=== PATIENT | male | born 1970 | race African-American/Black ===

== ENCOUNTER 2019-07-23 11:40 | Inpatient (IN) | payer MEDICARE, MEDICAID ==
[~2019-07-23] VITALS: Ht 177.8 cm; Wt 97.8 kg
[2019-07-23] MEDS ORDERED: MORPHINE SULFATE 4 MG/ML CPJ (NOT FOR IM USE) IV STA (12:01)
[2019-07-23] MEDS ORDERED: ONDANSETRON HCL 4MG/2ML INJ IV STA (12:01)
[2019-07-23 13:03] LABS: BASOPHILS % 0.3 % (0.0-2.0); EOSINOPHILS % 0.8 % (0.0-5.0); HEMATOCRIT. 51.2 % (42.0-52.0); HEMOGLOBIN. 18.3 g/dL (14.0-18.0); LYMPHOCYTES % 18.4 % (20.0-50.0); MEAN CORPUSCULAR VOLUME 87.1 fL (80.0-94.0); MONOCYTES % 13.9 % (2.0-8.0); NEUTROPHILS % 66.6 % (40.0-76.0); PLATELET 188 x1000/uL (130-400); RED BLOOD CELL COUNT 5.88 mill/uL (4.7-6.1); RED CELL DISTRIBUTION WIDTH 15.2 % (11.6-14.6)
[2019-07-23 13:12] LABS: CHLORIDE 98 mEq/L (98-107)
[2019-07-23 13:13] LABS: INR 1.1; PARTIAL THROMBOPLASTIN TIME 27.1 sec (23.4-31.0); PROTHROMBIN TIME 11.4 sec (9.6-11.0)
[2019-07-23 13:15] LABS: ETHANOL BLOOD < 10 mg/dL
[2019-07-23] MEDS ORDERED: KCL 20MEQ/100ML PREMIX 100 ML IV ONE (13:30)
[2019-07-23] MEDS ORDERED: ONDANSETRON HCL 4MG/2ML INJ IV ONE (13:45)
[2019-07-23] MEDS ORDERED: MORPHINE SULFATE 4 MG/ML CPJ (NOT FOR IM USE) IV ONE (13:45)
[2019-07-23] MEDS ORDERED: POTASSIUM CHLORIDE INJ 40 MEQ in DEXT 5% WATER 250 ML IV ONE (17:00)
[2019-07-23] MEDS ORDERED: CLONIDINE 0.1MG TABLET PO PRN (20:15)
[2019-07-23] MEDS ORDERED: DOCUSATE SODIUM 100MG CAPSULE PO PRN (20:15)
[2019-07-23] MEDS ORDERED: HYDROCODONE/ACETAMINOPHEN 5/325MG TABLET PO PRN (20:15)
[2019-07-23] MEDS ORDERED: NA PHOS,M-B/NA PHOS,DI-BA ENEMA 118ML PR PRN (20:15)
[2019-07-23] MEDS ORDERED: MAGNESIUM/ALUMINUM HYDROXIDE/SIMETHICONE 30ML UDC PO PRN (20:15)
[2019-07-23] MEDS ORDERED: DIPHENHYDRAMINE 50MG/ML VIAL IV PRN (20:15)
[2019-07-23] MEDS ORDERED: MORPHINE SULFATE 2 MG/ML CPJ (NOT FOR IM USE) IV PRN (20:15)
[2019-07-23] MEDS ORDERED: GUAIFENESIN 200MG/10ML SUGAR FREE UDC PO PRN (20:15)
[2019-07-23] MEDS ORDERED: ONDANSETRON HCL 4MG/2ML INJ IV PRN (20:15)
[2019-07-23] MEDS ORDERED: ACETAMINOPHEN 325MG TABLET PO PRN (20:15)
[2019-07-23] MEDS ORDERED: IPRATROPIUM/ALBUTEROL 0.5-3(2.5)MG/3ML NEB NEB PRN (20:15)
[2019-07-23] MEDS ORDERED: LORAZEPAM 2MG/ML CPJ IV PRN (20:15)
[2019-07-23 21:31] VITALS: BP 140/90
[2019-07-23 21:43] VITALS: BP 140/90
[2019-07-23] MEDS ORDERED: DEXTROSE 50% WATER 50ML SYRINGE IV PRN (22:15)
[2019-07-23] MEDS: SODIUM CHLORIDE 0.45% 1,000 ML IV SCH (22:24)
[2019-07-23] MEDS: ENOXAPARIN 30MG/0.3ML SYR SUBCUT SCH (22:24)
[2019-07-24 00:05] VITALS: BP 136/86
[2019-07-24 04:00] VITALS: BP 132/87
[2019-07-24 06:12] LABS: HEMATOCRIT. 45.5 % (42.0-52.0); HEMOGLOBIN. 15.9 g/dL (14.0-18.0); MEAN CORPUSCULAR HEMOGLOBIN 30.5 pg (28.0-32.0); MEAN CORPUSCULAR VOLUME 87.1 fL (80.0-94.0); MEAN PLATELET VOLUME 11.3 fl (7.4-10.4); PLATELET 163 x1000/uL (130-400); RED BLOOD CELL COUNT 5.22 mill/uL (4.7-6.1); RED CELL DISTRIBUTION WIDTH 15.7 % (11.6-14.6)
[2019-07-24] MEDS: BLOOD SUGAR DIAGNOSTIC STRIP TEST SCH ×4 (06:19→21:00)
[2019-07-24 06:25] LABS: CHLORIDE 105 mEq/L (98-107)
[2019-07-24 06:42] LABS: LDL CHOLESTEROL 86 mg/dL (5-100)
[2019-07-24 06:44] LABS: HDL CHOLESTEROL 44 mg/dL (40-59); T4 FREE 1.57 ng/dL (0.76-1.46)
[2019-07-24 08:00] VITALS: BP 123/79
[2019-07-24] MEDS: INSULIN LISPRO 100 UNITS/ML SUBCUT SCH ×4 (08:10→21:00)
[2019-07-24] MEDS: ENOXAPARIN 30MG/0.3ML SYR SUBCUT SCH ×2 (09:29→20:57)
[2019-07-24] MEDS ORDERED: POTASSIUM CHLORIDE INJ 40 MEQ in DEXT 5% WATER 250 ML IV NR (09:30)
[2019-07-24 12:00] VITALS: BP 122/50
[2019-07-24 13:40] LABS: PLATELET ESTIMATE NORMAL
[2019-07-24 16:00] VITALS: BP 135/96
[2019-07-24] MEDS: SODIUM CHLORIDE 0.45% 1,000 ML IV SCH ×2 (17:10→20:57)
[2019-07-24 20:00] VITALS: BP 126/80
[2019-07-25 00:05] VITALS: BP 131/85
[2019-07-25 04:00] VITALS: BP 136/91
[2019-07-25] MEDS: BLOOD SUGAR DIAGNOSTIC STRIP TEST SCH ×4 (05:57→21:00)
[2019-07-25] MEDS: INSULIN LISPRO 100 UNITS/ML SUBCUT SCH ×4 (07:42→21:00)
[2019-07-25 08:00] VITALS: BP 112/71
[2019-07-25] MEDS: ENOXAPARIN 30MG/0.3ML SYR SUBCUT SCH ×2 (08:24→22:11)
[2019-07-25] MEDS ORDERED: POTASSIUM CHLORIDE INJ 40 MEQ in DEXT 5% WATER 250 ML IV NR ×2 (08:30→19:30)
[2019-07-25 11:18] LABS: CHLORIDE 104 mEq/L (98-107)
[2019-07-25 11:29] LABS: BASOPHILS % 0.4 % (0.0-2.0); EOSINOPHILS % 2.4 % (0.0-5.0); HEMOGLOBIN. 13.8 g/dL (14.0-18.0); LYMPHOCYTES % 21.1 % (20.0-50.0); MEAN CORPUSCULAR HEMOGLOBIN 30.5 pg (28.0-32.0); MEAN CORPUSCULAR VOLUME 86.6 fL (80.0-94.0); MEAN PLATELET VOLUME 10.7 fl (7.4-10.4); MONOCYTES % 11.7 % (2.0-8.0); NEUTROPHILS % 64.4 % (40.0-76.0); PLATELET 141 x1000/uL (130-400); RED BLOOD CELL COUNT 4.51 mill/uL (4.7-6.1); RED CELL DISTRIBUTION WIDTH 15.5 % (11.6-14.6)
[2019-07-25] MEDS ORDERED: POTASSIUM CHLORIDE INJ 40 MEQ in DEXT 5% WATER 250 ML IV ONE (13:00)
[2019-07-25 13:11] VITALS: BP 134/77
[2019-07-25] MEDS ORDERED: POTASSIUM CHLORIDE INJ 60 MEQ in DEXT 5% WATER 500 ML IV NR (13:30)
[2019-07-25 16:44] VITALS: BP 133/92
[2019-07-25 18:21] LABS: HEPATITIS B SURFACE ANTIGEN NEGATIVE
[2019-07-25 18:51] LABS: HEPATITIS A AB IGM NEGATIVE (NEGATIVE)
[2019-07-25 19:45] LABS: CLARITY URINE TURBID (CLEAR); COLOR URINE YELLOW (YELLOW); KETONES URINE NEGATIVE (NEGATIVE); LEUKOCYTE ESTERASE URINE 3+ (NEGATIVE); NITRITE URINE POSITIVE (NEGATIVE); OCCULT BLOOD URINE TRACE (NEGATIVE); PH URINE 6.5 (4.5-8.0); PROTEIN URINE TRACE (NEGATIVE); SPECIFIC GRAVITY URINE 1.006 (1.005-1.030)
[2019-07-25 20:19] VITALS: BP 119/75
[2019-07-26] VITALS (9 sets, daily range): BP systolic 121–158; BP diastolic 58–84
[2019-07-26] MEDS ORDERED: POTASSIUM CHLORIDE INJ 40 MEQ in DEXT 5% WATER 250 ML IV NR (01:00)
[2019-07-26 06:32] LABS: BASOPHILS % 0.2 % (0.0-2.0); HEMATOCRIT. 44.3 % (42.0-52.0); HEMOGLOBIN. 15.7 g/dL (14.0-18.0); LYMPHOCYTES % 18.8 % (20.0-50.0); MEAN CORPUSCULAR HEMOGLOBIN 30.8 pg (28.0-32.0); MEAN CORPUSCULAR VOLUME 86.9 fL (80.0-94.0); MEAN PLATELET VOLUME 11.2 fl (7.4-10.4); MONOCYTES % 9.1 % (2.0-8.0); NEUTROPHILS % 69.9 % (40.0-76.0); PLATELET 161 x1000/uL (130-400); RED BLOOD CELL COUNT 5.09 mill/uL (4.7-6.1); RED CELL DISTRIBUTION WIDTH 15.2 % (11.6-14.6)
[2019-07-26 06:39] LABS: CHLORIDE 105 mEq/L (98-107)
[2019-07-26] MEDS: BLOOD SUGAR DIAGNOSTIC STRIP TEST SCH ×4 (07:40→20:48)
[2019-07-26] MEDS: ENOXAPARIN 30MG/0.3ML SYR SUBCUT SCH ×2 (10:52→20:39)
[2019-07-26 11:07] LABS: BG BASE EXCESS 6.7 mmol/L (-2.0-2.0); BG CARBOXYHEMOGLOBIN 0.7 % (0.5-1.5); BG FRACTION INSPIRED OXYGEN 21; BG HCO3 ACT 30.3 mmol/L (22.0-26.0); BG METHEMOGLOBIN 0.3 % (0.0-1.5); BG OXYGEN SATURATION 92.9 % (92.0-98.5); BG PCO2 39.5 mmHg (35.0-45.0); BG PH 7.502 (7.350-7.450); BG PO2 62.5 mmHg (75.0-100.0); BG SAMPLE SITE RIGHT BRACHIAL; BG TOTAL HEMOGLOBIN 13.6 g/dL (12.0-18.0); BG VENT MODE ROOM AIR
[2019-07-26] MEDS: INSULIN LISPRO 100 UNITS/ML SUBCUT SCH ×3 (13:00→20:48)
[2019-07-26] MEDS ORDERED: HYDRALAZINE 20MG/ML VIAL IV PRN (14:15)
[2019-07-26] MEDS: POTASSIUM CHLORIDE INJ 40 MEQ in DEXTROSE 5% WATER 1,000 ML IV SCH (14:28)
[2019-07-26] MEDS: LEVOFLOXACIN 500MG PREMIX 100 ML IV SCH (16:56)
[2019-07-26 18:10] LABS: CHLORIDE 109 mEq/L (98-107)
[2019-07-26] MEDS: METRONIDAZOLE 500 MG PREMIX 100 ML IV SCH (18:36)
[2019-07-26] MEDS ORDERED: POTASSIUM CHLORIDE INJ 40 MEQ in DEXT 5% WATER 250 ML IV SCH (21:00)
[2019-07-27] VITALS (12 sets, daily range): BP systolic 139–160; BP diastolic 78–103
[2019-07-27] MEDS: METRONIDAZOLE 500 MG PREMIX 100 ML IV SCH ×3 (01:20→18:19)
[2019-07-27] MEDS: POTASSIUM CHLORIDE INJ 40 MEQ in DEXT 5% WATER 250 ML IV SCH ×2 (02:25→06:28)
[2019-07-27 07:04] LABS: BASOPHILS % 0.2 % (0.0-2.0); EOSINOPHILS % 2.9 % (0.0-5.0); HEMOGLOBIN. 13.5 g/dL (14.0-18.0); LYMPHOCYTES % 21.3 % (20.0-50.0); MEAN CORPUSCULAR HEMOGLOBIN 30.2 pg (28.0-32.0); MEAN CORPUSCULAR VOLUME 87.1 fL (80.0-94.0); MEAN PLATELET VOLUME 10.1 fl (7.4-10.4); MONOCYTES % 12.4 % (2.0-8.0); NEUTROPHILS % 63.2 % (40.0-76.0); PLATELET 149 x1000/uL (130-400); RED BLOOD CELL COUNT 4.48 mill/uL (4.7-6.1); RED CELL DISTRIBUTION WIDTH 15.5 % (11.6-14.6)
[2019-07-27 07:07] LABS: CHLORIDE 112 mEq/L (98-107)
[2019-07-27 07:17] LABS: PHOSPHORUS 2.4 mg/dL (2.5-4.9)
[2019-07-27] MEDS: BLOOD SUGAR DIAGNOSTIC STRIP TEST SCH ×4 (07:30→20:20)
[2019-07-27] MEDS: INSULIN LISPRO 100 UNITS/ML SUBCUT SCH ×4 (08:00→20:20)
[2019-07-27] MEDS ORDERED: POTASSIUM CHLORIDE INJ 40 MEQ in DEXT 5% WATER 250 ML IV NR ×2 (10:00→20:00)
[2019-07-27] MEDS: ENOXAPARIN 30MG/0.3ML SYR SUBCUT SCH ×2 (10:25→20:16)
[2019-07-27] MEDS ORDERED: POTASSIUM CHLORIDE 20MEQ/PACKET PO NR (11:00)
[2019-07-27] MEDS: SPIRONOLACTONE 50MG TABLET PO SCH ×2 (12:31→16:53)
[2019-07-27] MEDS: POTASSIUM CHLORIDE INJ 40 MEQ in DEXTROSE 5% WATER 1,000 ML IV SCH ×2 (13:09→20:40)
[2019-07-27] MEDS: LACTULOSE 20G/30ML UDC PO SCH ×2 (15:18→20:16)
[2019-07-27] MEDS: LEVOFLOXACIN 500MG PREMIX 100 ML IV SCH (16:47)
[2019-07-27 17:54] LABS: CHLORIDE 108 mEq/L (98-107)
[2019-07-27] MEDS: THIAMINE HCL 100MG TABLET PO SCH (20:15)
[2019-07-27] MEDS: FOLIC ACID 1MG TABLET PO SCH (20:15)
[2019-07-27] MEDS: POTASSIUM CHLORIDE 20MEQ/PACKET PO SCH (20:17)
[2019-07-28] VITALS (13 sets, daily range): BP systolic 103–163; BP diastolic 53–102
[2019-07-28] MEDS: METRONIDAZOLE 500 MG PREMIX 100 ML IV SCH ×3 (01:08→17:07)
[2019-07-28] MEDS ORDERED: KCL 20MEQ/100ML PREMIX 100 ML IV SCH ×2 (03:00)
[2019-07-28] MEDS: POTASSIUM CHLORIDE INJ 40 MEQ in DEXTROSE 5% WATER 1,000 ML IV SCH ×3 (04:14→19:15)
[2019-07-28] MEDS: KCL 20MEQ/100ML PREMIX 100 ML IV SCH ×6 (05:00→23:55)
[2019-07-28] MEDS: LACTULOSE 20G/30ML UDC PO SCH (05:07)
[2019-07-28 06:00] LABS: CHLORIDE 108 mEq/L (98-107)
[2019-07-28 06:07] LABS: PHOSPHORUS 2.7 mg/dL (2.5-4.9)
[2019-07-28 06:10] LABS: BASOPHILS % 0.2 % (0.0-2.0); EOSINOPHILS % 2.9 % (0.0-5.0); HEMATOCRIT. 38.9 % (42.0-52.0); HEMOGLOBIN. 13.8 g/dL (14.0-18.0); LYMPHOCYTES % 28.7 % (20.0-50.0); MEAN CORPUSCULAR HEMOGLOBIN 30.9 pg (28.0-32.0); MEAN CORPUSCULAR VOLUME 87.3 fL (80.0-94.0); MEAN PLATELET VOLUME 10.4 fl (7.4-10.4); MONOCYTES % 12.7 % (2.0-8.0); NEUTROPHILS % 55.5 % (40.0-76.0); PLATELET 165 x1000/uL (130-400); RED BLOOD CELL COUNT 4.45 mill/uL (4.7-6.1); RED CELL DISTRIBUTION WIDTH 15.2 % (11.6-14.6)
[2019-07-28] MEDS: SPIRONOLACTONE 50MG TABLET PO SCH ×2 (07:04→17:07)
[2019-07-28] MEDS: BLOOD SUGAR DIAGNOSTIC STRIP TEST SCH ×4 (07:30→20:18)
[2019-07-28] MEDS: INSULIN LISPRO 100 UNITS/ML SUBCUT SCH ×4 (08:00→20:18)
[2019-07-28] MEDS: FOLIC ACID 1MG TABLET PO SCH (08:58)
[2019-07-28] MEDS: THIAMINE HCL 100MG TABLET PO SCH (08:58)
[2019-07-28] MEDS: ENOXAPARIN 30MG/0.3ML SYR SUBCUT SCH ×2 (08:59→20:17)
[2019-07-28] MEDS: POTASSIUM CHLORIDE 20MEQ/PACKET PO SCH (09:00)
[2019-07-28] MEDS: POTASSIUM CHLORIDE 20MEQ TABLET SR PO SCH ×2 (09:52→20:17)
[2019-07-28] MEDS: NITROFURANTOIN 100MG M/M CAPSULE PO SCH (17:07)
[2019-07-28 18:30] LABS: CHLORIDE 111 mEq/L (98-107)
[2019-07-28] MEDS: AMLODIPINE 5MG TABLET PO SCH (20:17)
[2019-07-29] VITALS (10 sets, daily range): BP systolic 115–146; BP diastolic 81–106
[2019-07-29] MEDS: METRONIDAZOLE 500 MG PREMIX 100 ML IV SCH ×3 (01:32→16:38)
[2019-07-29] MEDS: POTASSIUM CHLORIDE INJ 40 MEQ in DEXTROSE 5% WATER 1,000 ML IV SCH ×4 (03:14→23:16)
[2019-07-29] MEDS: POTASSIUM CHLORIDE 20MEQ TABLET SR PO SCH ×3 (06:24→22:24)
[2019-07-29] MEDS: SPIRONOLACTONE 50MG TABLET PO SCH ×2 (06:25→16:37)
[2019-07-29 06:43] LABS: BASOPHILS % 0.4 % (0.0-2.0); EOSINOPHILS % 3.3 % (0.0-5.0); HEMATOCRIT. 39.9 % (42.0-52.0); HEMOGLOBIN. 14.1 g/dL (14.0-18.0); LYMPHOCYTES % 24.4 % (20.0-50.0); MEAN CORPUSCULAR HEMOGLOBIN 30.9 pg (28.0-32.0); MEAN CORPUSCULAR VOLUME 87.5 fL (80.0-94.0); MEAN PLATELET VOLUME 10.5 fl (7.4-10.4); MONOCYTES % 10.6 % (2.0-8.0); NEUTROPHILS % 61.3 % (40.0-76.0); PLATELET 163 x1000/uL (130-400); RED BLOOD CELL COUNT 4.56 mill/uL (4.7-6.1); RED CELL DISTRIBUTION WIDTH 15.4 % (11.6-14.6)
[2019-07-29 06:56] LABS: CHLORIDE 110 mEq/L (98-107)
[2019-07-29 07:03] LABS: PHOSPHORUS 1.9 mg/dL (2.5-4.9)
[2019-07-29] MEDS: BLOOD SUGAR DIAGNOSTIC STRIP TEST SCH ×4 (07:42→20:58)
[2019-07-29] MEDS: INSULIN LISPRO 100 UNITS/ML SUBCUT SCH ×4 (08:00→20:59)
[2019-07-29] MEDS: NITROFURANTOIN 100MG M/M CAPSULE PO SCH ×2 (08:46→16:37)
[2019-07-29] MEDS: ENOXAPARIN 30MG/0.3ML SYR SUBCUT SCH ×2 (08:46→20:53)
[2019-07-29] MEDS: FOLIC ACID 1MG TABLET PO SCH (08:46)
[2019-07-29] MEDS: AMLODIPINE 5MG TABLET PO SCH ×2 (08:46→20:54)
[2019-07-29] MEDS: THIAMINE HCL 100MG TABLET PO SCH (08:46)
[2019-07-29] MEDS ORDERED: POTASSIUM PHOS,M-BASIC-D-BASIC 30 MMOL in DEXT 5% WATER 500 ML IV NR (10:00)
[2019-07-29] MEDS ORDERED: POTASSIUM CHLORIDE INJ 40 MEQ in DEXT 5% WATER 250 ML IV SCH (10:00)
[2019-07-29 16:25] LABS: CHLORIDE 111 mEq/L (98-107)
[2019-07-29] MEDS: METOCLOPRAMIDE HCL 10MG TABLET PO SCH (18:04)
[2019-07-29 21:48] LABS: CHLORIDE 110 mEq/L (98-107)
[2019-07-30] VITALS (7 sets, daily range): BP systolic 113–134; BP diastolic 74–88
[2019-07-30] MEDS: METOCLOPRAMIDE HCL 10MG TABLET PO SCH ×3 (00:47→12:39)
[2019-07-30] MEDS: METRONIDAZOLE 500 MG PREMIX 100 ML IV SCH ×3 (00:47→16:40)
[2019-07-30] MEDS: POTASSIUM CHLORIDE INJ 40 MEQ in DEXTROSE 5% WATER 1,000 ML IV SCH ×2 (03:51→16:40)
[2019-07-30] MEDS: SPIRONOLACTONE 50MG TABLET PO SCH (06:07)
[2019-07-30] MEDS: POTASSIUM CHLORIDE 20MEQ TABLET SR PO SCH ×3 (06:07→21:37)
[2019-07-30] MEDS: BLOOD SUGAR DIAGNOSTIC STRIP TEST SCH ×4 (07:42→21:37)
[2019-07-30] MEDS: INSULIN LISPRO 100 UNITS/ML SUBCUT SCH ×4 (08:00→21:00)
[2019-07-30 08:31] LABS: BASOPHILS % 0.3 % (0.0-2.0); EOSINOPHILS % 2.9 % (0.0-5.0); HEMATOCRIT. 42.7 % (42.0-52.0); HEMOGLOBIN. 14.5 g/dL (14.0-18.0); LYMPHOCYTES % 21.6 % (20.0-50.0); MEAN CORPUSCULAR HEMOGLOBIN 30.1 pg (28.0-32.0); MEAN CORPUSCULAR VOLUME 88.6 fL (80.0-94.0); MEAN PLATELET VOLUME 10.2 fl (7.4-10.4); MONOCYTES % 9.3 % (2.0-8.0); NEUTROPHILS % 65.9 % (40.0-76.0); PLATELET 176 x1000/uL (130-400); RED BLOOD CELL COUNT 4.83 mill/uL (4.7-6.1); RED CELL DISTRIBUTION WIDTH 15.4 % (11.6-14.6)
[2019-07-30 08:46] LABS: CHLORIDE 109 mEq/L (98-107)
[2019-07-30 08:59] LABS: PHOSPHORUS 1.9 mg/dL (2.5-4.9)
[2019-07-30] MEDS: FOLIC ACID 1MG TABLET PO SCH (09:11)
[2019-07-30] MEDS: ENOXAPARIN 30MG/0.3ML SYR SUBCUT SCH ×2 (09:12→21:38)
[2019-07-30] MEDS: THIAMINE HCL 100MG TABLET PO SCH (09:12)
[2019-07-30] MEDS: AMLODIPINE 5MG TABLET PO SCH (09:12)
[2019-07-30] MEDS: NITROFURANTOIN 100MG M/M CAPSULE PO SCH ×2 (09:12→16:40)
[2019-07-30] MEDS ORDERED: MAGNESIUM 4 G PREMIX 100 ML IV NR (11:30)
[2019-07-30] MEDS ORDERED: POTASSIUM PHOS,M-BASIC-D-BASIC 30 MMOL in SODIUM CHLORIDE 0.9% 500 ML IV NR (12:00)
[2019-07-30] MEDS: SPIRONOLACTONE 25MG TABLET PO SCH (16:41)
[2019-07-30 23:52] LABS: CREATINE KINASE 96 IU/L (39-308)
[2019-07-30 23:53] LABS: CREATINE KINASE MB FRACTION < 1.0 ng/mL (0.5-3.6)
[2019-07-31] VITALS (11 sets, daily range): BP systolic 85–160; BP diastolic 70–96
[2019-07-31] MEDS: METRONIDAZOLE 500 MG PREMIX 100 ML IV SCH ×3 (03:37→16:51)
[2019-07-31 05:56] LABS: BASOPHILS % 0.5 % (0.0-2.0); EOSINOPHILS % 2.3 % (0.0-5.0); HEMATOCRIT. 46.1 % (42.0-52.0); HEMOGLOBIN. 15.8 g/dL (14.0-18.0); LYMPHOCYTES % 23.9 % (20.0-50.0); MEAN CORPUSCULAR HEMOGLOBIN 30.7 pg (28.0-32.0); MEAN CORPUSCULAR VOLUME 89.2 fL (80.0-94.0); MEAN PLATELET VOLUME 9.8 fl (7.4-10.4); MONOCYTES % 8.7 % (2.0-8.0); NEUTROPHILS % 64.6 % (40.0-76.0); PLATELET 182 x1000/uL (130-400); RED BLOOD CELL COUNT 5.16 mill/uL (4.7-6.1); RED CELL DISTRIBUTION WIDTH 15.9 % (11.6-14.6)
[2019-07-31 06:20] LABS: CHLORIDE 112 mEq/L (98-107)
[2019-07-31 06:37] LABS: PHOSPHORUS 2.4 mg/dL (2.5-4.9)
[2019-07-31 06:40] LABS: CREATINE KINASE 97 IU/L (39-308)
[2019-07-31 06:43] LABS: CREATINE KINASE MB FRACTION < 1.0 ng/mL (0.5-3.6)
[2019-07-31] MEDS: POTASSIUM CHLORIDE 20MEQ TABLET SR PO SCH ×3 (07:01→21:24)
[2019-07-31] MEDS: POTASSIUM CHLORIDE INJ 40 MEQ in DEXTROSE 5% WATER 1,000 ML IV SCH ×2 (07:02→21:26)
[2019-07-31] MEDS: BLOOD SUGAR DIAGNOSTIC STRIP TEST SCH ×4 (07:30→21:26)
[2019-07-31] MEDS: INSULIN LISPRO 100 UNITS/ML SUBCUT SCH ×4 (08:00→21:00)
[2019-07-31] MEDS: NITROFURANTOIN 100MG M/M CAPSULE PO SCH ×2 (09:43→16:50)
[2019-07-31] MEDS: ENOXAPARIN 30MG/0.3ML SYR SUBCUT SCH ×2 (09:43→21:25)
[2019-07-31] MEDS: SPIRONOLACTONE 25MG TABLET PO SCH (09:44)
[2019-07-31] MEDS: FOLIC ACID 1MG TABLET PO SCH (09:44)
[2019-07-31] MEDS: THIAMINE HCL 100MG TABLET PO SCH (09:44)
[2019-07-31] MEDS ORDERED: POTASSIUM PHOS,M-BASIC-D-BASIC 20 MMOL in DEXT 5% WATER 243.3333 ML IV NR (15:30)
[2019-07-31] MEDS: SPIRONOLACTONE 50MG TABLET PO SCH (16:50)
[2019-07-31 18:16] LABS: CREATINE KINASE 74 IU/L (39-308)
[2019-07-31 18:17] LABS: CREATINE KINASE MB FRACTION < 1.0 ng/mL (0.5-3.6)
[2019-07-31] MEDS: METOPROLOL TARTRATE 50MG TABLET PO SCH (21:24)
[2019-08-01] VITALS: BP 118/78
[2019-08-01] MEDS: METRONIDAZOLE 500 MG PREMIX 100 ML IV SCH ×2 (01:37→08:30)
[2019-08-01 04:00] VITALS: BP 118/75
[2019-08-01 05:46] LABS: BASOPHILS % 0.4 % (0.0-2.0); EOSINOPHILS % 2.7 % (0.0-5.0); HEMATOCRIT. 43.4 % (42.0-52.0); HEMOGLOBIN. 14.9 g/dL (14.0-18.0); MEAN CORPUSCULAR HEMOGLOBIN 30.7 pg (28.0-32.0); MEAN CORPUSCULAR VOLUME 89.3 fL (80.0-94.0); MEAN PLATELET VOLUME 10.2 fl (7.4-10.4); NEUTROPHILS % 64.9 % (40.0-76.0); PLATELET 187 x1000/uL (130-400); RED BLOOD CELL COUNT 4.86 mill/uL (4.7-6.1); RED CELL DISTRIBUTION WIDTH 15.5 % (11.6-14.6)
[2019-08-01] MEDS: POTASSIUM CHLORIDE 20MEQ TABLET SR PO SCH (06:23)
[2019-08-01] MEDS: SPIRONOLACTONE 50MG TABLET PO SCH ×2 (06:23→17:15)
[2019-08-01 06:27] LABS: CHLORIDE 114 mEq/L (98-107)
[2019-08-01 06:40] LABS: PHOSPHORUS 2.4 mg/dL (2.5-4.9)
[2019-08-01 08:00] VITALS: BP 110/78
[2019-08-01] MEDS: INSULIN LISPRO 100 UNITS/ML SUBCUT SCH ×2 (08:00→17:15)
[2019-08-01] MEDS: BLOOD SUGAR DIAGNOSTIC STRIP TEST SCH ×3 (08:11→17:20)
[2019-08-01] MEDS: ENOXAPARIN 30MG/0.3ML SYR SUBCUT SCH (08:26)
[2019-08-01] MEDS: THIAMINE HCL 100MG TABLET PO SCH (08:27)
[2019-08-01] MEDS: NITROFURANTOIN 100MG M/M CAPSULE PO SCH ×2 (08:27→17:50)
[2019-08-01] MEDS: FOLIC ACID 1MG TABLET PO SCH (08:29)
[2019-08-01] MEDS: METOPROLOL TARTRATE 50MG TABLET PO SCH (08:30)
[2019-08-01] MEDS ORDERED: METRONIDAZOLE 500MG TABLET PO SCH (11:00)
[2019-08-01 11:30] VITALS: BP 114/83
[2019-08-01] MEDS ORDERED: MAGNESIUM 1 G PREMIX 100 ML IV SCH (13:00)
[2019-08-01] MEDS ORDERED: SODIUM PHOS,M-BASIC-D-BASIC 15 MM in DEXT 5% WATER 245 ML IV NR (14:00)
[2019-08-01 16:00] VITALS: BP 109/69
[2019-08-01 17:59] VITALS: BP 110/69
== END 2019-08-01 18:40 | disposition home health service (06) | DRG 394 ==
LOC: ER 12:27 → EDBD 12:27 → 7WST 13:23 → ENRESERV 15:07 → CANRESERV 15:07 → EDBEDREQSVC 16:18 → ENRESERV 20:07 → 5EST 07-26 08:03 → 5WST 08-01 12:29
PROVIDERS: ADMIT Internal Medicine; ATTEND Internal Medicine
PROC: 0D9670Z Drainage of Stomach with Drainage Device, Via Natural or Artificial Opening (ICD-10-PCS; principal; 2019-07-23)
DX: K40.00 Bilateral inguinal hernia, with obstruction, without gangrene, not specified as recurrent (principal); K56.7 Ileus, unspecified; N39.0 Urinary tract infection, site not specified; E87.0 Hyperosmolality and hypernatremia; E87.3 Alkalosis; I47.1 Supraventricular tachycardia; J98.11 Atelectasis; E87.6 Hypokalemia; E86.0 Dehydration; D64.9 Anemia, unspecified; R00.1 Bradycardia, unspecified; E11.9 Type 2 diabetes mellitus without complications; I10 Essential (primary) hypertension; E87.8 Other disorders of electrolyte and fluid balance, not elsewhere classified; K70.31 Alcoholic cirrhosis of liver with ascites; B96.20 Unspecified Escherichia coli [E. coli] as the cause of diseases classified elsewhere; Z82.49 Family history of ischemic heart disease and other diseases of the circulatory system; Z86.73 Personal history of transient ischemic attack (TIA), and cerebral infarction without residual deficits; Z90.49 Acquired absence of other specified parts of digestive tract; Z88.0 Allergy status to penicillin; Z88.8 Allergy status to other drugs, medicaments and biological substances; Z79.899 Other long term (current) drug therapy
CPT/HCPCS: 36415; 36600; 71045; 74018; 74176; 76705; 80048; 80061; 80320; 81003; 82088; 82140; 82340; 82375; 82436; 82533; 82550; 82553; 82570; 82805; 82962; 83605; 83735; 83880; 83935; 84100; 84132; 84133; 84244; 84439; 84443; 84484; 86705; 86709; 86803; 87077; 87186; 87340; 93005; 93306; 96374; 97162; 97530; 99285; J1650; J1956; J2270; J2405; J3475; J3480; J3490; J7040; J7060; J7070; J7620; J8597; G0480

== ENCOUNTER 2019-11-29 05:38 | Inpatient (IN) | payer MEDICARE, MEDICAID ==
[~2019-11-29] VITALS: Ht 368.3 cm; Wt 77.1 kg
[2019-11-29 08:30] LABS: BASOPHILS % 0.3 % (0.0-2.0); EOSINOPHILS % 3.1 % (0.0-5.0); HEMATOCRIT. 44.3 % (42.0-52.0); HEMOGLOBIN. 15.5 g/dL (14.0-18.0); LYMPHOCYTES % 15.3 % (20.0-50.0); MEAN CORPUSCULAR HEMOGLOBIN 31.3 pg (28.0-32.0); MEAN CORPUSCULAR VOLUME 89.6 fL (80.0-94.0); MEAN PLATELET VOLUME 10.5 fl (7.4-10.4); MONOCYTES % 6.8 % (2.0-8.0); NEUTROPHILS % 74.5 % (40.0-76.0); PLATELET 198 x1000/uL (130-400); RED BLOOD CELL COUNT 4.95 mill/uL (4.7-6.1); RED CELL DISTRIBUTION WIDTH 15.6 % (11.6-14.6)
[2019-11-29 09:21] LABS: CHLORIDE 106 mEq/L (98-107)
[2019-11-29] MEDS ORDERED: SODIUM CHLORIDE 0.9% 1,000 ML IV SCH (09:25)
[2019-11-29] MEDS ORDERED: ACETAMINOPHEN 650MG SUPP PR PRN (09:30)
[2019-11-29] MEDS ORDERED: ONDANSETRON HCL 4MG/2ML INJ IV PRN (09:30)
[2019-11-29] MEDS ORDERED: MORPHINE SULFATE 2 MG/ML CPJ (NOT FOR IM USE) IV PRN (09:30)
[2019-11-29] MEDS ORDERED: POTASSIUM CHLORIDE INJ 40 MEQ in DEXT 5% WATER 250 ML IV ONE (09:30)
[2019-11-29] MEDS ORDERED: POTASSIUM CHLORIDE 20MEQ TABLET SR PO ONE (09:30)
[2019-11-29] MEDS ORDERED: DIPHENHYDRAMINE 50MG/ML VIAL IV PRN (09:30)
[2019-11-29 10:02] LABS: PHOSPHORUS 2.4 mg/dL (2.5-4.9)
[2019-11-29] MEDS ORDERED: MAGNESIUM 2 G PREMIX 50 ML IV ONE (11:15)
[2019-11-29 16:00] VITALS: BP 144/80
[2019-11-29] MEDS ORDERED: DEXTROSE 50% WATER 50ML SYRINGE IV PRN (16:45)
[2019-11-29] MEDS: BLOOD SUGAR DIAGNOSTIC STRIP TEST SCH ×2 (17:30→20:25)
[2019-11-29 17:44] LABS: CREATINE KINASE MB FRACTION 2.5 ng/mL (0.5-3.6)
[2019-11-29 18:00] VITALS: BP 127/79
[2019-11-29] MEDS: INSULIN LISPRO 100 UNITS/ML SUBCUT SCH ×2 (18:00→21:00)
[2019-11-29] MEDS ORDERED: AZITHROMYCIN 500 MG in DEXT 5% WATER 250 ML IV SCH (18:00)
[2019-11-29] MEDS: POTASSIUM CHLORIDE INJ 40 MEQ in DEXT 5% WATER 250 ML IV SCH (18:36)
[2019-11-29] MEDS: BISACODYL 10MG SUPP PR SCH (19:14)
[2019-11-29 20:00] VITALS: BP 128/80
[2019-11-29 22:00] VITALS: BP 131/78
[2019-11-29 23:51] LABS: CHLORIDE 109 mEq/L (98-107)
[2019-11-30] VITALS (12 sets, daily range): BP systolic 124–149; BP diastolic 75–100
[2019-11-30] LABS: CREATINE KINASE 595 IU/L (39-308)
[2019-11-30 00:01] LABS: CREATINE KINASE MB FRACTION 2.6 ng/mL (0.5-3.6)
[2019-11-30] MEDS: POTASSIUM CHLORIDE INJ 40 MEQ in DEXT 5% WATER 250 ML IV SCH (00:46)
[2019-11-30 05:06] LABS: CHLORIDE 109 mEq/L (98-107)
[2019-11-30 05:11] LABS: BASOPHILS % 0.3 % (0.0-2.0); EOSINOPHILS % 5.5 % (0.0-5.0); HEMATOCRIT. 39.8 % (42.0-52.0); HEMOGLOBIN. 13.8 g/dL (14.0-18.0); LYMPHOCYTES % 17.6 % (20.0-50.0); MEAN CORPUSCULAR HEMOGLOBIN 31.1 pg (28.0-32.0); MEAN CORPUSCULAR VOLUME 89.5 fL (80.0-94.0); MEAN PLATELET VOLUME 11.2 fl (7.4-10.4); MONOCYTES % 6.6 % (2.0-8.0); PLATELET 181 x1000/uL (130-400); RED BLOOD CELL COUNT 4.44 mill/uL (4.7-6.1); RED CELL DISTRIBUTION WIDTH 15.2 % (11.6-14.6)
[2019-11-30 05:14] LABS: LDL CHOLESTEROL 65 mg/dL (5-100)
[2019-11-30 05:16] LABS: HDL CHOLESTEROL 58 mg/dL (40-59)
[2019-11-30 05:28] LABS: T4 FREE 1.44 ng/dL (0.76-1.46)
[2019-11-30] MEDS: BLOOD SUGAR DIAGNOSTIC STRIP TEST SCH ×4 (06:38→21:13)
[2019-11-30] MEDS: INSULIN LISPRO 100 UNITS/ML SUBCUT SCH ×4 (08:00→21:00)
[2019-11-30] MEDS: BISACODYL 10MG SUPP PR SCH (08:59)
[2019-11-30] MEDS ORDERED: BISACODYL 10MG SUPP PR SCH (09:00)
[2019-11-30] MEDS ORDERED: POTASSIUM CHLORIDE 20MEQ TABLET SR PO SCH (09:30)
[2019-11-30 10:29] LABS: BG BASE EXCESS 13.3 mmol/L (-2.0-2.0); BG CARBOXYHEMOGLOBIN 0.8 % (0.5-1.5); BG DEOXYHEMOGLOBIN 6.5 % (0.0-5.0); BG FRACTION INSPIRED OXYGEN 21; BG HCO3 ACT 37.5 mmol/L (22.0-26.0); BG METHEMOGLOBIN 0.2 % (0.0-1.5); BG OXYGEN SATURATION 93.4 % (92.0-98.5); BG OXYHEMOGLOBIN 92.5 % (94.0-97.0); BG PCO2 45.6 mmHg (35.0-45.0); BG PH 7.533 (7.350-7.450); BG PO2 67.5 mmHg (75.0-100.0); BG SAMPLE SITE RIGHT RADIAL; BG TOTAL HEMOGLOBIN 12.8 g/dL (12.0-18.0); BG VENT MODE ROOM AIR
[2019-11-30] MEDS ORDERED: DEXT 5%/0.45% NACL KCL 40MEQ/L 1,000 ML IV SCH (11:00)
[2019-11-30] MEDS ORDERED: POTASSIUM CHLORIDE INJ 40 MEQ in DEXT 5% WATER 250 ML IV SCH (11:00)
[2019-11-30] MEDS ORDERED: MAGNESIUM 4 G PREMIX 100 ML IV NR ×2 (11:00→18:00)
[2019-11-30] MEDS: AMLODIPINE 2.5MG TABLET PO SCH ×2 (12:15→21:13)
[2019-11-30] MEDS: AZITHROMYCIN 500 MG in DEXT 5% WATER 250 ML IV SCH (15:05)
[2019-11-30 18:17] LABS: CHLORIDE 113 mEq/L (98-107)
[2019-11-30] MEDS ORDERED: MAGNESIUM OXIDE 400MG TABLET PO SCH (21:00)
[2019-11-30] MEDS ORDERED: POTASSIUM CHLORIDE INJ 40 MEQ in DEXTROSE 5% WATER 1,000 ML IV SCH (21:00)
[2019-11-30] MEDS ORDERED: DEXT 5% WATER + KCL 40MEQ/L 1,000 ML IV SCH (21:00)
[2019-11-30] MEDS: POTASSIUM CHLORIDE 20MEQ TABLET SR PO SCH (21:12)
[2019-11-30] MEDS ORDERED: MAGNESIUM 4 G PREMIX 100 ML IV SCH (23:00)
[2019-12-01] VITALS (16 sets, daily range): BP systolic 95–159; BP diastolic 64–107
[2019-12-01] MEDS: POTASSIUM CHLORIDE INJ 40 MEQ in DEXT 5% WATER 250 ML IV SCH ×4 (00:53→17:59)
[2019-12-01 06:20] LABS: CHLORIDE 118 mEq/L (98-107)
[2019-12-01 06:25] LABS: PHOSPHORUS 2.7 mg/dL (2.5-4.9)
[2019-12-01 06:37] LABS: BASOPHILS % 0.5 % (0.0-2.0); EOSINOPHILS % 6.7 % (0.0-5.0); HEMATOCRIT. 35.4 % (42.0-52.0); HEMOGLOBIN. 12.4 g/dL (14.0-18.0); LYMPHOCYTES % 20.5 % (20.0-50.0); MEAN CORPUSCULAR HEMOGLOBIN 31.4 pg (28.0-32.0); MEAN CORPUSCULAR VOLUME 89.5 fL (80.0-94.0); MONOCYTES % 6.9 % (2.0-8.0); NEUTROPHILS % 65.4 % (40.0-76.0); PLATELET 175 x1000/uL (130-400); RED BLOOD CELL COUNT 3.96 mill/uL (4.7-6.1); RED CELL DISTRIBUTION WIDTH 15.5 % (11.6-14.6)
[2019-12-01] MEDS: INSULIN LISPRO 100 UNITS/ML SUBCUT SCH ×4 (08:00→21:00)
[2019-12-01] MEDS ORDERED: MAGNESIUM 4 G PREMIX 100 ML IV SCH (08:00)
[2019-12-01] MEDS: BLOOD SUGAR DIAGNOSTIC STRIP TEST SCH ×4 (08:15→20:44)
[2019-12-01] MEDS: POTASSIUM CHLORIDE 20MEQ TABLET SR PO SCH ×2 (08:35→21:29)
[2019-12-01] MEDS: BISACODYL 10MG SUPP PR SCH (08:36)
[2019-12-01] MEDS: AMLODIPINE 2.5MG TABLET PO SCH ×2 (08:36→21:30)
[2019-12-01] MEDS: POTASSIUM CHLORIDE INJ 40 MEQ in DEXTROSE 5% WATER 1,000 ML IV SCH ×3 (09:18→21:52)
[2019-12-01] MEDS: AZITHROMYCIN 500 MG in DEXT 5% WATER 250 ML IV SCH (14:13)
[2019-12-01] MEDS: SIMETHICONE 80MG TABLET CHEW PO SCH ×2 (17:59→21:26)
[2019-12-01 21:41] LABS: CHLORIDE 122 mEq/L (98-107)
[2019-12-02] VITALS (12 sets, daily range): BP systolic 108–138; BP diastolic 67–100
[2019-12-02] MEDS: POTASSIUM CHLORIDE INJ 40 MEQ in DEXTROSE 5% WATER 1,000 ML IV SCH ×3 (04:10→20:24)
[2019-12-02 07:26] LABS: BASOPHILS % 0.5 % (0.0-2.0); EOSINOPHILS % 6.1 % (0.0-5.0); HEMATOCRIT. 38.4 % (42.0-52.0); HEMOGLOBIN. 13.2 g/dL (14.0-18.0); LYMPHOCYTES % 21.3 % (20.0-50.0); MEAN CORPUSCULAR HEMOGLOBIN 31.3 pg (28.0-32.0); MEAN CORPUSCULAR VOLUME 91.2 fL (80.0-94.0); MONOCYTES % 7.9 % (2.0-8.0); NEUTROPHILS % 64.2 % (40.0-76.0); PLATELET 169 x1000/uL (130-400); RED BLOOD CELL COUNT 4.21 mill/uL (4.7-6.1); RED CELL DISTRIBUTION WIDTH 15.9 % (11.6-14.6)
[2019-12-02] MEDS: BLOOD SUGAR DIAGNOSTIC STRIP TEST SCH ×4 (07:30→21:51)
[2019-12-02 07:47] LABS: CHLORIDE 122 mEq/L (98-107)
[2019-12-02] MEDS: INSULIN LISPRO 100 UNITS/ML SUBCUT SCH ×4 (08:00→21:00)
[2019-12-02] MEDS: SIMETHICONE 80MG TABLET CHEW PO SCH (09:25)
[2019-12-02] MEDS: BISACODYL 10MG SUPP PR SCH (09:25)
[2019-12-02] MEDS: POTASSIUM CHLORIDE 20MEQ TABLET SR PO SCH ×2 (09:26→21:51)
[2019-12-02] MEDS: AMLODIPINE 2.5MG TABLET PO SCH ×2 (09:26→21:51)
[2019-12-02] MEDS ORDERED: DESMOPRESSIN ACETATE 4MCG/ML AMP IV NR (11:00)
[2019-12-02] MEDS ORDERED: BISACODYL 10MG SUPP PR PRN (12:15)
[2019-12-02] MEDS ORDERED: SIMETHICONE 80MG TABLET CHEW PO PRN (12:15)
[2019-12-02 13:32] LABS: CLARITY URINE CLEAR (CLEAR); COLOR URINE YELLOW (YELLOW); KETONES URINE NEGATIVE (NEGATIVE); LEUKOCYTE ESTERASE URINE 3+ (NEGATIVE); NITRITE URINE NEGATIVE (NEGATIVE); OCCULT BLOOD URINE TRACE (NEGATIVE); PH URINE 7.5 (4.5-8.0); PROTEIN URINE NEGATIVE (NEGATIVE); SPECIFIC GRAVITY URINE 1.003 (1.005-1.030); UROBILINOGEN URINE 0.2 E.U./dL (0.2-1.0)
[2019-12-02] MEDS: AZITHROMYCIN 500 MG in DEXT 5% WATER 250 ML IV SCH (13:34)
[2019-12-02] MEDS ORDERED: POTASSIUM CHLORIDE INJ 40 MEQ in DEXT 5% WATER 250 ML IV NR (15:00)
[2019-12-02] MEDS: LEVOFLOXACIN 750MG PREMIX 150 ML IV SCH (17:43)
[2019-12-02 20:08] LABS: CHLORIDE 114 mEq/L (98-107)
[2019-12-02] MEDS: POTASSIUM CHLORIDE INJ 40 MEQ in DEXT 5% WATER 250 ML IV NR (20:48)
[2019-12-03] MEDS: POTASSIUM CHLORIDE INJ 40 MEQ in DEXT 5% WATER 250 ML IV NR (01:31)
[2019-12-03] MEDS: POTASSIUM CHLORIDE INJ 40 MEQ in DEXTROSE 5% WATER 1,000 ML IV SCH ×4 (01:32→21:57)
[2019-12-03 04:00] VITALS: BP 121/82
[2019-12-03] MEDS: BLOOD SUGAR DIAGNOSTIC STRIP TEST SCH ×4 (07:01→20:45)
[2019-12-03] MEDS: INSULIN LISPRO 100 UNITS/ML SUBCUT SCH ×4 (07:02→20:45)
[2019-12-03 08:05] VITALS: BP 132/90
[2019-12-03] MEDS: POTASSIUM CHLORIDE 20MEQ TABLET SR PO SCH ×2 (08:11→20:45)
[2019-12-03] MEDS: DOCUSATE SODIUM 250MG CAPSULE PO SCH (08:11)
[2019-12-03] MEDS: AMLODIPINE 2.5MG TABLET PO SCH ×2 (08:17→20:45)
[2019-12-03 08:24] LABS: BASOPHILS % 0.4 % (0.0-2.0); EOSINOPHILS % 5.3 % (0.0-5.0); HEMATOCRIT. 34.3 % (42.0-52.0); HEMOGLOBIN. 11.9 g/dL (14.0-18.0); MEAN CORPUSCULAR HEMOGLOBIN 31.2 pg (28.0-32.0); MEAN CORPUSCULAR VOLUME 90.2 fL (80.0-94.0); NEUTROPHILS % 66.3 % (40.0-76.0); PLATELET 154 x1000/uL (130-400); RED CELL DISTRIBUTION WIDTH 15.6 % (11.6-14.6)
[2019-12-03 08:45] LABS: CHLORIDE 113 mEq/L (98-107)
[2019-12-03 08:51] LABS: PHOSPHORUS 2.7 mg/dL (2.5-4.9)
[2019-12-03 12:00] VITALS: BP 107/77
[2019-12-03 12:13] VITALS: BP 108/78
[2019-12-03] MEDS: SIMETHICONE 80MG TABLET CHEW PO SCH ×4 (12:30→20:45)
[2019-12-03] MEDS: AZITHROMYCIN 500 MG in DEXT 5% WATER 250 ML IV SCH (14:54)
[2019-12-03 16:00] VITALS: BP 128/91
[2019-12-03] MEDS: LEVOFLOXACIN 750MG PREMIX 150 ML IV SCH (16:51)
[2019-12-03] MEDS ORDERED: KCL 20MEQ/100ML PREMIX 100 ML IV NR (18:00)
[2019-12-03] MEDS ORDERED: MAGNESIUM 4 G PREMIX 100 ML IV NR (18:00)
[2019-12-03 20:00] VITALS: BP 117/76
[2019-12-04] VITALS: BP 118/80
[2019-12-04 04:00] VITALS: BP 95/61
[2019-12-04] MEDS: POTASSIUM CHLORIDE INJ 40 MEQ in DEXTROSE 5% WATER 1,000 ML IV SCH ×3 (04:45→18:56)
[2019-12-04] MEDS: BLOOD SUGAR DIAGNOSTIC STRIP TEST SCH ×4 (06:33→20:21)
[2019-12-04] MEDS: INSULIN LISPRO 100 UNITS/ML SUBCUT SCH ×4 (06:38→20:21)
[2019-12-04 07:08] LABS: BASOPHILS % 0.4 % (0.0-2.0); HEMATOCRIT. 39.2 % (42.0-52.0); HEMOGLOBIN. 13.3 g/dL (14.0-18.0); LYMPHOCYTES % 19.1 % (20.0-50.0); MEAN CORPUSCULAR VOLUME 91.5 fL (80.0-94.0); MEAN PLATELET VOLUME 11.1 fl (7.4-10.4); MONOCYTES % 4.9 % (2.0-8.0); NEUTROPHILS % 68.6 % (40.0-76.0); PLATELET 150 x1000/uL (130-400); RED BLOOD CELL COUNT 4.29 mill/uL (4.7-6.1); RED CELL DISTRIBUTION WIDTH 15.2 % (11.6-14.6)
[2019-12-04 07:53] LABS: CHLORIDE 116 mEq/L (98-107)
[2019-12-04 07:59] LABS: PHOSPHORUS 2.7 mg/dL (2.5-4.9)
[2019-12-04] MEDS: SIMETHICONE 80MG TABLET CHEW PO SCH ×4 (08:15→20:37)
[2019-12-04 08:24] VITALS: BP 133/91
[2019-12-04] MEDS: POTASSIUM CHLORIDE 20MEQ TABLET SR PO SCH ×2 (08:55→20:37)
[2019-12-04] MEDS: AMLODIPINE 2.5MG TABLET PO SCH ×2 (08:56→20:20)
[2019-12-04] MEDS: DOCUSATE SODIUM 250MG CAPSULE PO SCH (08:56)
[2019-12-04 12:06] VITALS: BP 116/80
[2019-12-04] MEDS: AZITHROMYCIN 500 MG in DEXT 5% WATER 250 ML IV SCH (13:40)
[2019-12-04 15:29] VITALS: BP 123/86
[2019-12-04] MEDS: LEVOFLOXACIN 750MG PREMIX 150 ML IV SCH (17:53)
[2019-12-04 20:48] VITALS: BP 103/71
[2019-12-05] VITALS: BP 105/76
[2019-12-05 03:49] VITALS: BP 100/73
[2019-12-05 05:01] LABS: BASOPHILS % 0.5 % (0.0-2.0); HEMATOCRIT. 36.5 % (42.0-52.0); HEMOGLOBIN. 12.2 g/dL (14.0-18.0); LYMPHOCYTES % 27.5 % (20.0-50.0); MEAN CORPUSCULAR VOLUME 92.4 fL (80.0-94.0); MEAN PLATELET VOLUME 11.1 fl (7.4-10.4); MONOCYTES % 6.7 % (2.0-8.0); NEUTROPHILS % 59.3 % (40.0-76.0); PLATELET 152 x1000/uL (130-400); RED BLOOD CELL COUNT 3.95 mill/uL (4.7-6.1); RED CELL DISTRIBUTION WIDTH 15.3 % (11.6-14.6)
[2019-12-05 05:19] LABS: CHLORIDE 118 mEq/L (98-107)
[2019-12-05 05:24] LABS: PHOSPHORUS 2.7 mg/dL (2.5-4.9)
[2019-12-05] MEDS: INSULIN LISPRO 100 UNITS/ML SUBCUT SCH ×4 (07:50→21:00)
[2019-12-05] MEDS: BLOOD SUGAR DIAGNOSTIC STRIP TEST SCH ×4 (07:50→21:00)
[2019-12-05 08:00] VITALS: BP 99/66
[2019-12-05] MEDS: DOCUSATE SODIUM 250MG CAPSULE PO SCH (09:00)
[2019-12-05] MEDS ORDERED: AZITHROMYCIN 500 MG TABLET PO SCH (09:00)
[2019-12-05] MEDS: AMLODIPINE 2.5MG TABLET PO SCH ×2 (09:00→22:31)
[2019-12-05] MEDS: SIMETHICONE 80MG TABLET CHEW PO SCH ×4 (09:01→22:33)
[2019-12-05] MEDS: POTASSIUM CHLORIDE 20MEQ TABLET SR PO SCH ×2 (09:01→22:30)
[2019-12-05] MEDS ORDERED: LEVOFLOXACIN 500MG TABLET PO SCH (11:00)
[2019-12-05 12:00] VITALS: BP 115/80
[2019-12-05] MEDS: POTASSIUM CHLORIDE INJ 40 MEQ in DEXTROSE 5% WATER 1,000 ML IV SCH ×2 (13:38→22:33)
[2019-12-05] MEDS: NITROFURANTOIN 100MG M/M CAPSULE PO SCH (14:21)
[2019-12-05 16:00] VITALS: BP 112/74
[2019-12-05 20:00] VITALS: BP_SYST 105; BP_SYST 114; BP_DIAS 74; BP_DIAS 86
[2019-12-06 00:04] VITALS: BP 92/57
[2019-12-06] MEDS: NITROFURANTOIN 100MG M/M CAPSULE PO SCH ×3 (00:07→22:46)
[2019-12-06 04:00] VITALS: BP 101/68
[2019-12-06] MEDS: POTASSIUM CHLORIDE INJ 40 MEQ in DEXTROSE 5% WATER 1,000 ML IV SCH ×3 (05:01→22:47)
[2019-12-06 06:26] LABS: BASOPHILS % 0.4 % (0.0-2.0); EOSINOPHILS % 5.6 % (0.0-5.0); HEMATOCRIT. 35.6 % (42.0-52.0); HEMOGLOBIN. 11.9 g/dL (14.0-18.0); LYMPHOCYTES % 36.4 % (20.0-50.0); MEAN CORPUSCULAR HEMOGLOBIN 31.2 pg (28.0-32.0); MEAN CORPUSCULAR VOLUME 93.2 fL (80.0-94.0); MEAN PLATELET VOLUME 11.1 fl (7.4-10.4); MONOCYTES % 7.8 % (2.0-8.0); NEUTROPHILS % 49.8 % (40.0-76.0); PLATELET 161 x1000/uL (130-400); RED BLOOD CELL COUNT 3.83 mill/uL (4.7-6.1); RED CELL DISTRIBUTION WIDTH 15.4 % (11.6-14.6)
[2019-12-06] MEDS: BLOOD SUGAR DIAGNOSTIC STRIP TEST SCH ×4 (06:36→21:00)
[2019-12-06 06:39] LABS: CHLORIDE 118 mEq/L (98-107)
[2019-12-06] MEDS: INSULIN LISPRO 100 UNITS/ML SUBCUT SCH ×4 (07:25→21:00)
[2019-12-06 08:00] VITALS: BP 112/72
[2019-12-06] MEDS: SIMETHICONE 80MG TABLET CHEW PO SCH ×4 (08:45→22:46)
[2019-12-06] MEDS: POTASSIUM CHLORIDE 20MEQ TABLET SR PO SCH (08:45)
[2019-12-06] MEDS: AMLODIPINE 2.5MG TABLET PO SCH ×2 (08:45→22:50)
[2019-12-06 12:00] VITALS: BP 109/73
[2019-12-06 16:00] VITALS: BP 105/74
[2019-12-06 20:37] VITALS: BP 115/83
[2019-12-07] VITALS: BP 119/77
[2019-12-07 04:00] VITALS: BP 106/70
[2019-12-07 06:40] LABS: BASOPHILS % 0.8 % (0.0-2.0); EOSINOPHILS % 7.4 % (0.0-5.0); HEMATOCRIT. 36.8 % (42.0-52.0); HEMOGLOBIN. 12.2 g/dL (14.0-18.0); LYMPHOCYTES % 33.1 % (20.0-50.0); MEAN CORPUSCULAR HEMOGLOBIN 30.9 pg (28.0-32.0); MEAN CORPUSCULAR VOLUME 93.2 fL (80.0-94.0); MEAN PLATELET VOLUME 10.7 fl (7.4-10.4); MONOCYTES % 9.1 % (2.0-8.0); NEUTROPHILS % 49.6 % (40.0-76.0); PLATELET 165 x1000/uL (130-400); RED BLOOD CELL COUNT 3.95 mill/uL (4.7-6.1); RED CELL DISTRIBUTION WIDTH 15.1 % (11.6-14.6)
[2019-12-07] MEDS: BLOOD SUGAR DIAGNOSTIC STRIP TEST SCH ×3 (07:12→17:20)
[2019-12-07] MEDS: INSULIN LISPRO 100 UNITS/ML SUBCUT SCH ×3 (07:50→17:50)
[2019-12-07 08:00] VITALS: BP 113/82
[2019-12-07 08:04] LABS: CHLORIDE 112 mEq/L (98-107)
[2019-12-07 08:16] LABS: PHOSPHORUS 2.6 mg/dL (2.5-4.9)
[2019-12-07] MEDS: POTASSIUM CHLORIDE INJ 40 MEQ in DEXTROSE 5% WATER 1,000 ML IV SCH (08:52)
[2019-12-07] MEDS: AMLODIPINE 2.5MG TABLET PO SCH (08:53)
[2019-12-07] MEDS: SIMETHICONE 80MG TABLET CHEW PO SCH ×3 (08:53→18:20)
[2019-12-07] MEDS: NITROFURANTOIN 100MG M/M CAPSULE PO SCH (08:53)
[2019-12-07] MEDS ORDERED: POTASSIUM CHLORIDE 20MEQ TABLET SR PO SCH ×2 (09:00→21:00)
[2019-12-07] MEDS ORDERED: FOLI-43 MT (11:56)
[2019-12-07] MEDS ORDERED: VITA1CAP MT (11:56)
[2019-12-07] MEDS ORDERED: AMLO10TA80 MT (11:56)
[2019-12-07] MEDS ORDERED: SPIR25TA MT (11:56)
[2019-12-07] MEDS ORDERED: SPIR50TA5 MT (11:56)
[2019-12-07] MEDS ORDERED: METO-539 MT (11:56)
[2019-12-07] MEDS ORDERED: POTA20TA82 MT (11:56)
[2019-12-07 12:00] VITALS: BP 105/70
[2019-12-07] MEDS ORDERED: MAGNESIUM OXIDE 400MG TABLET PO SCH (12:00)
[2019-12-07 16:00] VITALS: BP 98/65
[2019-12-07 18:22] VITALS: BP 105/70
[2019-12-08 13:06] LABS: OVA & PARASITE EXAM Final report (.)
== END 2019-12-07 20:15 | disposition home health service (06) | DRG 388 ==
LOC: ER 05:38 → 5EST 09:14 → ENRESERV 13:56 → 6WST 12-03 01:00
PROVIDERS: ADMIT Internal Medicine; ATTEND Internal Medicine
DX: K56.7 Ileus, unspecified (principal); J18.9 Pneumonia, unspecified organism; N39.0 Urinary tract infection, site not specified; E87.0 Hyperosmolality and hypernatremia; E87.3 Alkalosis; E44.1 Mild protein-calorie malnutrition; K59.8 Other specified functional intestinal disorders; I10 Essential (primary) hypertension; E87.6 Hypokalemia; E83.51 Hypocalcemia; E83.42 Hypomagnesemia; E87.8 Other disorders of electrolyte and fluid balance, not elsewhere classified; R73.9 Hyperglycemia, unspecified; K40.20 Bilateral inguinal hernia, without obstruction or gangrene, not specified as recurrent; E83.39 Other disorders of phosphorus metabolism; Z82.49 Family history of ischemic heart disease and other diseases of the circulatory system; Z86.73 Personal history of transient ischemic attack (TIA), and cerebral infarction without residual deficits; Z83.3 Family history of diabetes mellitus; Z88.0 Allergy status to penicillin
CPT/HCPCS: 36415; 36600; 71045; 74018; 74176; 80048; 80053; 80061; 81003; 82088; 82375; 82550; 82553; 82805; 82962; 83036; 83735; 83880; 83935; 84100; 84132; 84133; 84244; 84300; 84439; 84443; 84484; 85025; 87077; 87177; 87186; 87209; 89055; 93005; 93306; 93970; 97162; 97530; 99291; A6261; J0456; J1200; J1815; J1956; J2597; J3475; J3480; J7040; J7060; J7070

== ENCOUNTER 2023-03-28 13:51 | Emergency (ER) | payer MEDICARE, MEDICAID ==
[~2023-03-28] VITALS: Ht 172.7 cm; Wt 109.0 kg
[~2023-03-28 13:51] MED LIST: AMLO10TA80 MT; FOLI-43 MT; METO-539 MT; POTA-205 MT; SPIR25TA MT; SPIR50TA5 MT; VITA1CAP MT
[2023-03-28] MEDS ORDERED: MAGNESIUM/ALUMINUM HYDROXIDE/SIMETHICONE 30ML UDC PO STA (14:22)
[2023-03-28] MEDS ORDERED: ONDANSETRON 4MG ODT PO STA (14:22)
[2023-03-28] MEDS ORDERED: ASPIRIN 325MG TABLET PO ONE (14:30)
[2023-03-28] MEDS ORDERED: FAMOTIDINE 20MG TABLET PO ONE (14:30)
[2023-03-28 15:09] LABS: CHLORIDE 107 mEq/L (98-107)
[2023-03-28 15:38] LABS: BASOPHILS % 0.2 % (0.0-2.0); EOSINOPHILS % 1.3 % (0.0-5.0); HEMATOCRIT. 40.8 % (42.0-52.0); HEMOGLOBIN. 13.9 g/dL (14.0-18.0); LYMPHOCYTES % 10.2 % (20.0-50.0); MEAN CORPUSCULAR HEMOGLOBIN 31.1 pg (28.0-32.0); MEAN CORPUSCULAR VOLUME 91.4 fL (80.0-94.0); MEAN PLATELET VOLUME 10.2 fl (7.4-10.4); MONOCYTES % 8.8 % (2.0-8.0); NEUTROPHILS % 79.5 % (40.0-76.0); PLATELET 202 x1000/uL (130-400); RED BLOOD CELL COUNT 4.46 mill/uL (4.7-6.1); RED CELL DISTRIBUTION WIDTH 14.1 % (11.6-14.6)
[2023-03-28 17:00] VITALS: BP 105/64
== END 2023-03-28 18:20 | disposition home or self-care (01) ==
LOC: ER 14:03
DX: R07.89 Other chest pain (principal); R10.31 Right lower quadrant pain; I10 Essential (primary) hypertension; E11.9 Type 2 diabetes mellitus without complications; Z88.0 Allergy status to penicillin; Z79.899 Other long term (current) drug therapy; Z86.73 Personal history of transient ischemic attack (TIA), and cerebral infarction without residual deficits
CPT/HCPCS: 36415; 71045; 74176; 80053; 83690; 84484; 85025; 85610; 93005; 99284; Q0162